=== PATIENT | female | born 1965 | race Asian ===

== ENCOUNTER → 2021-09-16 | Outpatient (CLI) | payer OTHER ==
--- NOTE | 2021-09-16 12:49 | US ---
EXAMINATION TYPE: US kidneys/renal and bladder DATE OF EXAM: 09/16/2021 COMPARISON: NONE CLINICAL HISTORY: R31.1 Microhematuria. EXAM MEASUREMENTS: Right Kidney: 10.4 x 3.2 x 4.8 cm Left Kidney: 10.1 x 5.2 x 4.6 cm Right Kidney: Prominent pelvis Left Kidney: Appears wnl Bladder: wnl Bilateral Jets seen: Yes No nephrolithiasis is seen. No masses are identified. The urinary bladder is anechoic. Bilateral u reteral jets are seen. Incidental Finding: echogenic focus with posterior shadowing seen within the gallbladder. IMPRESSION: Prominent right renal pelvis without garrison hydronephrosis at this time.
== END | disposition home or self-care (01) ==
LOC: RADUSWWP 12:19
PROVIDERS: ATTEND Urology
DX: R31.1 Benign essential microscopic hematuria (principal)
CPT/HCPCS: 76770

== ENCOUNTER → 2022-01-26 | Outpatient (CLI) | payer OTHER ==
--- NOTE | 2022-01-26 12:17 | CA ---
Stress Echo Report Kristen Moran Age: 56 Gender: F : 1965 Exam Date: 01/26/2022 09:37 Exam Location: [place] [facility] Ht (in): 62 Wt (lb): 120 Ordering Physician: Avis Rangel MD Referring Physician: AVIS RANGEL,, Director Of [employer] Sales: Kelli Stone RDCS Technologist Procedure CPT: Indication: R07.89 chest pain ICD-9 Codes: Rhythm: Patient History: family hx of heart disease Cardiac Medications: Medications in past 24 hours: Contrast: Stress Results Protocol: Don Total dose(mL): Exercise Duration (min:sec): [address] Depression (mm): Angina Score: Mitchell Score: METS: 7.1 Resting HR: 101 Resting BP: 85 / 49 Peak HR: 168 Peak BP: 151 / 67 Max Predicted HR: 165 102 % Max Predicted HR Target HR: 140 Double Product: [id number] Stress Summary: BP Response: Reason for Termination: Cardiac Symptoms: ECG Analysis Resting ECG: Normal sinus rhythm normal axis normal intervals Stress ECG: No ST segment depression at peak exercise Arrhythmia: Echo Analysis Resting Echo: Normal left ventricular size wall motion systolic function Peak Echo Analysis: Normal hyperdynamic response of all segments of myocardium noted MEASUREMENTS (Male/Female) Normal Values CONCLUSIONS Average exercise tolerance Negative stress test by EKG criteria Negative stress echo Dr. Hudson Rojas MD (Electronically Signed) Final Date: 26 Jan 2022 12:16
== END | disposition home or self-care (01) ==
LOC: RADNMMAIN 09:21
PROVIDERS: ATTEND Internal Medicine
DX: R07.89 Other chest pain (principal)
CPT/HCPCS: 93351

== ENCOUNTER → 2022-03-11 | Outpatient (CLI) | payer OTHER ==
--- NOTE | 2022-03-12 16:54 | MM ---
Reason for Exam: Screening (asymptomatic). Last mammogram was performed 1 year(s) and 9 month(s) ago. Patient History: Menarche at age 13. Patient has no children. Postmenopausal. Risk Values: Megan 5 year model risk: 1.3%. NCI Lifetime model risk: 9.1%. Prior Study Comparison: 06/05/2019 Bilateral MG screening mammo w CAD - 2, [facility]. 06/18/2020 Bilateral MG screening mammo w CAD - 2, [facility]. Tissue Density: The breast tissue is extremely dense which could obscure a lesion on mammography. Findings: Analyzed By CAD. No suspicious groups of microcalcifications, spiculated or lobular masses, architectural distortion or other secondary signs of malignancy are mammographically apparent. Overall Assessment: Benign, BI-RAD 2 Management: Screening Mammogram of both breasts in 1 year. A negative mammogram report should not preclude additional follow up of suspicious palpable abnormalities. Patient should continue monthly self breast exam. A clinical breast exam by your physician is recommended on an annual basis and results should be correlated with mammographic findings. Electronically signed and approved by: John Soriano D.O. Radiologis
== END | disposition home or self-care (01) ==
LOC: RADMAMWWP 14:46
PROVIDERS: ATTEND Internal Medicine
DX: Z12.31 Encounter for screening mammogram for malignant neoplasm of breast (principal)
CPT/HCPCS: 77067

== ENCOUNTER → 2022-04-23 | Outpatient (CLI) | payer OTHER ==
[2022-04-23 16:43] LABS: Basophils # (A) 0.1 k/uL (0-0.2); Basophils % (A) 1 %; Eosinophils # (A) 0.3 k/uL (0-0.7); Eosinophils % (A) 3 %; HCT 41.4 % (34.0-46.0); HGB 13.3 gm/dL (11.4-16.0); Lymphocytes # (A) 3.1 k/uL (1.0-4.8); Lymphocytes % (A) 40 %; MCH 27.4 pg (25.0-35.0); MCHC 32.1 g/dL (31.0-37.0); MCV 85.3 fL (80.0-100.0); Mean Platelet Volume 6.5; Monocytes # (A) 0.4 k/uL (0-1.0); Monocytes % (A) 5 %; Neutrophils # (A) 3.9 k/uL (1.3-7.7); Neutrophils % (A) 49 %; Platelet Count 425 k/uL (150-450); RBC 4.86 m/uL (3.80-5.40); RDW 12.9 % (11.5-15.5); WBC 7.8 k/uL (3.8-10.6)
== END | disposition home or self-care (01) ==
LOC: LABWHC1 16:21
PROVIDERS: ATTEND Internal Medicine
DX: R79.89 Other specified abnormal findings of blood chemistry (principal)
CPT/HCPCS: 36415; 85025

== ENCOUNTER → 2023-03-12 | Outpatient (CLI) | payer OTHER ==
--- NOTE | 2023-03-12 15:09 | BD ---
EXAMINATION TYPE: Axial Bone Density DATE OF EXAM: 03/12/2023 CLINICAL HISTORY: 57 years old Female. ICD-10 CODE: Z13.820 Height: 60.5 in Weight: 120 lbs RISK FACTORS HISTORY OF: Active: yes Diet low in dairy products/other sources of calcium: yes Postmenopausal woman: age 49 Take estrogen and/or progesterone medications: not now MEDICATIONS: Additional Medications: flonase EXAM MEASUREMENTS: Bone mineral densitometry was performed using the [employer]. Bone mineral density as measured about the Lumbar spine is: ----- L1-L4(G/cm2): 0.922 T Score Values are as follows: ----- L1: -2.0 ----- L2: -2.7 ----- L3: -2.8 ----- L4: -1.4 ----- L1-L4: -2.2 Z Score Values are as follows: ----- L1: -0.7 ----- L2: -1.4 ----- L3: -1.5 ----- L4: -0.1 ----- L1-L4: -0.9 Bone mineral density baseline Bone mineral density about the R hip (g/cm2): 0.831 Bone mineral density about the L hip (g/cm2): 0.811 T Score values are as follows: -----R Neck: -1.8 -----L Neck: -1.9 -----R Total: -1.4 -----L Total: -1.6 Z Score values are as follows: -----R Neck: -0.5 -----L Neck: -0.5 -----R Total: -0.4 -----L Total: -0.6 Bone mineral density baseline FRAX%s: The graph provided illustrates a 4.2% chance for a major osteoporotic fx and a 0.5% chance fo r the hips probability for fx in 10 years time. IMPRESSION: Osteopenia (T Score between -2.5 and -1). There is slightly increased risk of fracture and the patient may be considered for treatment. Re-Screen 2-5 years. NOTE: T-SCORE=SD OF THE YOUNG ADULT MEAN.
--- NOTE | 2023-03-15 10:49 | MM ---
Reason for Exam: Screening (asymptomatic). Last screening mammogram was performed 12 month(s) ago. Patient History: Menarche at age 13. Patient has no children. Postmenopausal. Risk Values: Megan 5 year model risk: 1.4%. NCI Lifetime model risk: 8.9%. Prior Study Comparison: 06/05/2019 Bilateral MG screening mammo w CAD - 2, [facility]. 06/18/2020 Bilateral MG screening mammo w CAD - 2, [facility]. 03/11/2022 Bilateral MG screening mammo w CAD, [facility]. Tissue Density: The breast tissue is extremely dense which could obscure a lesion on mammography. Findings: Analyzed By CAD. Abdomen appears symmetrical and stable. No significant interval change is evident. No suspicious groups of microcalcifications, spiculated or lobular masses, architectural distortion or other secondary signs of malignancy are mammographically apparent. Overall Assessment: Benign, BI-RAD 2 Management: Screening Mammogram of both breasts in 1 year. A negative mammogram report should not preclude additional follow up of suspicious palpable abnormalities. Patient should continue monthly self breast exam. A clinical breast exam by your physician is recommended on an annual basis and results should be correlated with mammographic findings. Electronically signed and approved by: John Soriano D.O. Radiologis
== END | disposition home or self-care (01) ==
LOC: RADMAMWWP 13:20
PROVIDERS: ATTEND Family Medicine
DX: Z12.31 Encounter for screening mammogram for malignant neoplasm of breast (principal); Z13.820 Encounter for screening for osteoporosis; M81.0 Age-related osteoporosis without current pathological fracture; M85.89 Other specified disorders of bone density and structure, multiple sites; Z78.0 Asymptomatic menopausal state
CPT/HCPCS: 77063; 77067; 77080

== ENCOUNTER → 2024-04-12 | Outpatient (CLI) | payer OTHER ==
--- NOTE | 2024-04-14 09:54 | MM ---
Reason for Exam: Screening (asymptomatic). Last mammogram was performed 1 year(s) and 1 month(s) ago. Patient History: Menarche at age 13. Patient has no children. Postmenopausal. Risk Values: Megan 5 year model risk: 1.5%. NCI Lifetime model risk: 8.5%. Prior Study Comparison: 06/18/2020 Bilateral MG screening mammo w CAD - 2, [facility]. 03/11/2022 Bilateral MG screening mammo w CAD, [facility]. 03/12/2023 Bilateral MG 3D screening mammo w/cad, [facility]. Tissue Density: The breasts are extremely dense, which lowers the sensitivity of mammography. Findings: Analyzed By CAD. There is no suspicious group of microcalcifications or new suspicious mass in either breast. Overall Assessment: Negative, BI-RAD 1 Management: Screening Mammogram of both breasts in 1 year. . Patient should continue monthly self-breast exams. A clinical breast exam by your physician is recommended on an annual basis. This exam should not preclude additional follow-up of suspicious palpable abnormalities. Note on Megan scores and lifetime risk: 1. A Megan score greater than 3% is considered moderate risk. If this is the case, consider specialist referral to assess eligibility for a risk reducing agent. 2. If overall lifetime risk for the development of breast cancer is 20% or higher, the patient may qualify for future screening with alternating mammogram and breast MRI. Electronically signed and approved by: Mil Chaudhary M.D. Radiologis
== END | disposition home or self-care (01) ==
LOC: RADMAMWWP 15:10
PROVIDERS: ATTEND Family Medicine
DX: Z12.31 Encounter for screening mammogram for malignant neoplasm of breast (principal); Z78.0 Asymptomatic menopausal state; R92.343 Mammographic extreme density, bilateral breasts
CPT/HCPCS: 77063; 77067

== ENCOUNTER → 2025-04-17 | Outpatient (CLI) | payer OTHER ==
--- NOTE | 2025-04-17 18:04 | MM ---
Reason for Exam: Screening (asymptomatic). Last screening mammogram was performed 12 month(s) ago. Patient History: Menarche at age 13. Patient has no children. Postmenopausal. Risk Values: Megan 5 year model risk: 1.5%. NCI Lifetime model risk: 8.3%. Prior Study Comparison: 03/11/2022 Bilateral MG screening mammo w CAD, [facility]. 03/12/2023 Bilateral MG 3D screening mammo w/cad, [facility]. 04/12/2024 Bilateral MG 3D screening mammo w/cad, [facility]. Tissue Density: The breasts are heterogeneously dense, which may obscure small masses. Findings: Analyzed By CAD. There is no suspicious group of microcalcifications or new suspicious mass in either breast. Overall Assessment: Negative, BI-RAD 1 Management: Screening Mammogram of both breasts in 1 year. Patient should continue monthly self-breast exams. A clinical breast exam by your physician is recommended on an annual basis. This exam should not preclude additional follow-up of suspicious palpable abnormalities. Note on Megan scores and lifetime risk: 1. A Megan score greater than 3% is considered moderate risk. If this is the case, consider specialist referral to assess eligibility for a risk reducing agent. 2. If overall lifetime risk for the development of breast cancer is 20% or higher, the patient may qualify for future screening with alternating mammogram and breast MRI. [facility], , 04/17/2025 6:01 PM. Electronically signed and approved by: Karina Mendosa M.D. Radiologist
--- NOTE | 2025-04-18 12:14 | BD ---
EXAMINATION TYPE: Axial Bone Density DATE OF EXAM: 04/17/2025 CLINICAL HISTORY: 60 years old Female. ICD-10 CODE: M81.6 LOCALIZED OSTEOPOROSIS , Additional Histor y: Height: 61.5 Weight: 120.8 FRAX RISK QUESTIONS: Alcohol (3 or more units per day): no Family History (Parent hip fracture): no Glucocorticoids (More than 3mos): no (Ex: prednisone, prednisolone, methylprednisolone, dexamethasone, and hydrocortisone). History of Fracture in Adulthood: no Secondary Osteoporosis: no 1. Type 1 Diabetes: no 2. Hyperthyroidism: no 3. Menopause before 45: yes 4. Malnutrition: no 5. Chronic liver disease: no Rheumatoid Arthritis: no Current Tobacco Use: no RISK FACTORS HISTORY OF: Surgery to Spine/Hip(right/left)/Wrist (right/left): no EXAM MEASUREMENTS: Bone mineral densitometry was performed using the [employer]. Bone mineral density as measured about the Lumbar spine is: ----- L1-L4(G/cm2): 0.981 T Score Values are as follows: ----- L1: -1.6 ----- L2: -2.5 ----- L3: -2.2 ----- L4: -0.7 ----- L1-L4: -1.7 Z Score Values are as follows: ----- L1: -0.1 ----- L2: -1.1 ----- L3: -0.8 ----- L4: 0.8 ----- L1-L4: -0.2 Bone mineral density has: increased 6.4 % since study of: 03.12.2023 Bone mineral density about the R hip (g/cm2): 0.886 Bone mineral density about the L hip (g/cm2): 0.859 T Score values are as follows: -----R Neck: -1.7 -----L Neck: -1.8 -----R Total: -1.0 -----L Total: -1.2 Z Score values are as follows: -----R Neck: -0.3 -----L Neck: -0.4 -----R Total: -0.4 -----L Total: 0.1 Bone mineral density has: increased 6.2 % since study of: 6.23.2022 FRAX%s: The graph provided illustrates a 4.5% chance for a major osteoporotic fx and a 0.5% chance fo r the hips probability for fx in 10 years time. IMPRESSION: Osteopenia (T Score between -2.5 and -1). There is slightly increased risk of fracture and the patient may be considered for treatment. Re-Screen 2-5 years. NOTE: T-SCORE=SD OF THE YOUNG ADULT MEAN. [facility], , 04/18/2025 12:11 PM
== END | disposition home or self-care (01) ==
LOC: RADMAMWWP 15:22
PROVIDERS: ATTEND Family Medicine
DX: Z12.31 Encounter for screening mammogram for malignant neoplasm of breast (principal); R92.333 Mammographic heterogeneous density, bilateral breasts; M85.89 Other specified disorders of bone density and structure, multiple sites; M81.6 Localized osteoporosis [Lequesne]; Z78.0 Asymptomatic menopausal state
CPT/HCPCS: 77063; 77067; 77080